=== PATIENT | female | born 1960 | race Two or more races ===

== ENCOUNTER 2016-08-27 17:30 | Emergency (ER) | payer OTHER ==
[~2016-08-27 17:30] MED LIST: ASPI-612 PO; ATOR20TA PO; Lisinopril PO; METF500T4 PO; OMEP20TA8 PO
[2016-08-27 18:16] VITALS: BP 116/60
[2016-08-27] MEDS ORDERED: HYDROcodone/APAP 5/325MG 1 TAB TABLET PO ONE (18:30)
[2016-08-27] MEDS ORDERED: diazePAM 5 MG TABLET PO ONE (18:30)
[2016-08-27] MEDS ORDERED: HYDR-971 PO (18:33)
[2016-08-27] MEDS ORDERED: CYCL10TA2 PO (18:33)
--- NOTE | 2016-08-27 18:33 | PHYS DOC ---
Past Medical History Past Medical History: Diabetes-Type II, Hypertension Past Surgical History: No Surgical History Alcohol Use: None Drug Use: None Adult General Chief Complaint Chief Complaint: LOWER BACK PAIN OR INJURY HPI HPI Patient is a 55 year old female with history of hypertension and diabetes type 2 who presents today with 8 out of 10 bilateral low back pain nonradiating in nature that began 2 weeks ago. Patient states the pain is worse on movement. Patient denies any trauma. Denies any numbness or tingling to bilateral lower extremities. Denies any loss of bowel bladder function. She is in the ED with a back brace she purchased [id number] which she states it's helping with the pain. Review of Systems Review of Systems Constitutional: Denies fever or chills [] Eyes: Denies change in visual acuity, redness, or eye pain [] HENT: Denies nasal congestion or sore throat [] Musculoskeletal: Low back pain Integument: Denies rash or skin lesions [] Neurologic: Denies headache, focal weakness or sensory changes [] Endocrine: Denies polyuria or polydipsia [] Allergies Allergies Allergies Coded Allergies Type Severity Reaction Last Updated Verified aspirin Allergy Intermediate Rash 05/28/14 No Physical Exam Physical Exam Constitutional: Well developed, well nourished, no acute distress, non-toxic appearance. [] HENT: Normocephalic, atraumatic, bilateral external ears normal, oropharynx moist, no oral exudates, nose normal. [] Abdomen: Bowel sounds normal, soft, no tenderness, no masses, no pulsatile masses. [] Skin: Warm, dry, no erythema, no rash. [] Back: Patient has a lumbar support brace.Diffuse paraspinal muscle tenderness to the lumbar region bilaterally. No midline lumbar spine Tenderness, no CVA tenderness. [] Extremities: No tenderness, no cyanosis, no clubbing, ROM intact, no edema. [] Neurologic: Alert and oriented X 3, normal motor function, normal sensory function, no focal deficits noted. [] Psychologic: Affect normal, judgement normal, mood normal. [] Current Patient Data Vital Signs Vital Signs Date Time Temp Pulse Resp B/P (MAP) Pulse Ox O2 Delivery O2 Flow Rate FiO2 08/27/16 18:16 98.1 95 18 95 Room Air 98.1 EKG EKG [] Radiology/Procedures Radiology/Procedures [] Course & Med Decision Making Course & Med Decision Making Pertinent Labs and Imaging studies reviewed. (See chart for details) This is a 55-year-old female patient who presents to the ED today with acute low back pain no known injury no signs cauda equina syndrome. She is allergic to aspirin. Patient has no urinary symptoms. Pain appears musculoskeletal. She' ll be discharged with hydrocodone and Flexeril. Follow-up with her PCP in one week. She was provided return precautions and discharged in stable condition. Dragon Disclaimer Dragon Disclaimer This electronic medical record was generated, in whole or in part, using a voice recognition dictation system. Departure Departure Impression: Primary Impression: Low back pain Disposition: HOME, SELF-CARE Condition: STABLE Referrals: NO PCP (PCP) ELSA KIRK MD follow up in one week Patient Instructions: Back Exercises, Back Pain, Adult Additional Instructions: You were seen for acute low back pain. Take the prescribed medicines as ordered. Apply heat to your back. You can wear the brace as tolerated. Follow- up with a primary care doctor in the next 7 days. Come back to the ED if symptoms worsen especially if you develop any loss of bowel or bladder function. Scripts Cyclobenzaprine Hcl (CYCLOBENZAPRINE HCL) 10 Mg Tablet 1 TAB PO TID, #30 TAB 1 Refill Prov: GIFTY SHAW APRN 08/27/16 Hydrocodone/Apap 5-325 (NORCO 5-325 TABLET) 1 Each Tablet 1 TAB PO Q4-6HRS, #14 TAB Prov: GIFTY SHAW APRN 08/27/16 Problem Qualifiers Primary Impression: Low back pain Chronicity: acute Back pain laterality: bilateral Sciatica presence: without sciatica Qualified Codes: M54.5 - Low back pain GIFTY SHAW APRN Aug 27, 2016 18:33
== END 2016-08-27 19:01 | disposition home or self-care (01) ==
LOC: ER 17:30
DX: M54.5 Low back pain (principal); E11.9 Type 2 diabetes mellitus without complications; I10 Essential (primary) hypertension; Z88.6 Allergy status to analgesic agent
CPT/HCPCS: 99283